=== PATIENT | male | born 1985 | race Caucasian/White ===

== ENCOUNTER 2022-04-18 16:43 | Emergency (ER) | payer SELFPAY ==
[2022-04-18 16:44] VITALS: BP 117/85; PULSE 119; RESP 22; TEMP 36.8; O2SAT 100; BMI 29.2
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
[2022-04-18 17:10] VITALS: BP 116/85; PULSE 119; RESP 16; TEMP 36.8; O2SAT 98
== END 2022-04-18 17:11 ==
PROVIDERS: Emergency Provider Emergency Medicine
DX: S16.1XXA Strain of muscle, fascia and tendon at neck level, initial encounter (principal); Z98.1 Arthrodesis status; Z65.3 Problems related to other legal circumstances
CPT/HCPCS: 99282